=== PATIENT | female | born 1995 | race Caucasian/White ===

== ENCOUNTER 2018-07-15 10:07 | Emergency (ER) | payer OTHER ==
[~2018-07-15] VITALS: Ht 167.6 cm; Wt 70.6 kg
[2018-07-15 10:11] VITALS: Ht 167.6 cm; Wt 70.6 kg
[2018-07-15] MEDS ORDERED: KETOROLAC 30 MG INJ IV STA (11:55)
[2018-07-15] MEDS ORDERED: SOD CHLORIDE 0.9% 1,000 ML IV STA (11:55)
[2018-07-15] MEDS ORDERED: ONDANSETRON 4 MG INJ IV STA (13:28)
[2018-07-15] MEDS ORDERED: morphine 4 MG/ML VIAL IV STA (13:28)
[2018-07-15] MEDS ORDERED: NAPR-985 PO (13:46)
[2018-07-15] MEDS ORDERED: HYDR-4011 PO (13:46)
--- NOTE | 2018-07-15 14:06 | ERD ---
ER Documentation Chief Complaint Chief Complaint lower abd pain with nausea x this am HPI 23-year-old female presenting with lower abdominal pain with nausea that started this morning. She states she has no fevers and n vomiting. No change in urination or bowel movement. Took ibuprofen with no alleviation's. Denies other medical problems. NKDA. Surgical history denies. Social history denies ROS All systems reviewed and are negative except as per history of present illness. Medications Home Meds Active Scripts Naproxen* (Naprosyn*) 500 Mg Tablet, 500 MG PO BID PRN for PAIN AND/OR INFLAMMATION, #30 TAB Prov:KATIE LILLY PA-C 07/15/18 Hydrocodone/Acetaminophen (Bunn 5-325 Tablet) 1 Each Tablet, 1 TAB PO Q6H PRN for PAIN, #7 TAB Prov:KATIE LILLY PA-C 07/15/18 Allergies Allergies: Coded Allergies: lamotrigine (Verified Allergy, Mild, 07/15/18) PMhx/Soc Hx Psychiatric Problems: Yes (depression) Hx Alcohol Use: No Hx Substance Use: No Hx Tobacco Use: No Smoking Status: Never smoker FmHx Family History: No diabetes, No coronary disease, No other Physical Exam Vitals Vital Signs Date Temp Pulse Resp B/P (MAP) Pulse Ox O2 O2 Flow FiO2 Time Delivery Rate 07/15/18 99.4 98 19 141/93 98 10:11 (109) Physical Exam GENERAL: The patient is well-appearing, well-nourished, in no acute distress HEENT: Atraumatic. Conjunctivae are pink. Pupils equal, round, and reactive to light. There is no scleral icterus. Tympanic membranes clear bilaterally. Oropharynx clear. NECK: C-spine is soft and supple. There is no meningismus. There is no cervical lymphadenopathy. CHEST: Clear to auscultation bilaterally. There are no rales, wheezes or rhonchi. HEART: Regular rate and rhythm. No murmurs, clicks, rubs or gallops. ABDOMEN: Normal active bowel sounds. No distention. No organomegaly. Tender to palpation in the right lower quadrant with no rebound tenderness. Result Diagram: 07/15/18 1231 07/15/18 1231 Results 24 hrs Laboratory Tests Test 07/15/18 12:10 07/15/18 12:31 Urine Color YELLOW Urine Clarity SLIGHTLY CLOUDY Urine pH 6.0 Urine Specific [place] 1.008 Urine Ketones NEGATIVE mg/dL Urine Nitrite NEGATIVE mg/dL Urine Bilirubin NEGATIVE mg/dL Urine Urobilinogen NEGATIVE mg/dL Urine Leukocyte Esterase NEGATIVE Kel/ul Urine Microscopic RBC 2 /HPF Urine Microscopic WBC 1 /HPF Urine Squamous Epithelial Cells FEW /HPF Urine Bacteria FEW /HPF Urine Hemoglobin NEGATIVE mg/dL Urine Glucose NEGATIVE mg/dL Urine Total Protein NEGATIVE mg/dl POC Beta HCG, Qualitative NEGATIVE White Blood Count 16.8 10^3/ul Red Blood Count 3.87 10^6/ul Hemoglobin 12.2 g/dl Hematocrit 34.7 % Mean Corpuscular Volume 89.7 fl Mean Corpuscular Hemoglobin 31.5 pg Mean Corpuscular Hemoglobin Concent 35.2 g/dl Red Cell Distribution Width 11.7 % Platelet Count 253 10^3/UL Mean Platelet Volume 8.4 fl Immature Granulocytes % 0.700 % Neutrophils % 83.6 % Lymphocytes % 8.9 % Monocytes % 6.4 % Eosinophils % 0.1 % Basophils % 0.3 % Nucleated Red Blood Cells % 0.0 /100WBC Immature Granulocytes # 0.120 10^3/ul Neutrophils # 14.0 10^3/ul Lymphocytes # 1.5 10^3/ul Monocytes # 1.1 10^3/ul Eosinophils # 0.0 10^3/ul Basophils # 0.1 10^3/ul Nucleated Red Blood Cells # 0.0 10^3/ul Sodium Level 136 mmol/L Potassium Level 4.0 mmol/L Chloride Level 102 mmol/L Carbon Dioxide Level 22 mmol/L Anion Gap 12 Blood Urea Nitrogen 5 mg/dl Creatinine 0.50 mg/dl Est Glomerular Filtrat Rate mL/min > 60 mL/min Glucose Level 96 mg/dl Calcium Level 9.4 mg/dl Total Bilirubin 0.6 mg/dl Direct Bilirubin 0.00 mg/dl Indirect Bilirubin 0.6 mg/dl Aspartate Amino Transf (AST/SGOT) 21 IU/L Alanine Aminotransferase (ALT/SGPT) 22 IU/L Alkaline Phosphatase 77 IU/L Total Protein 7.2 g/dl Albumin 4.5 g/dl Globulin 2.70 g/dl Albumin/Globulin Ratio 1.66 Lipase 33 U/L Current Medications Medications Dose Sig/Kirti Start Time Status Last (Trade) Ordered Route PRN Stop Time Admin Dose Reason Admin Sodium 1,000 ml @ Q1H STAT 07/15/18 DC 07/15/18 Chloride 1,000 mls/hr IV 11:55 12:12 07/15/18 12:54 Ketorolac 30 mg ONCE STAT 07/15/18 DC 07/15/18 Tromethamine IV 11:55 12:18 (Toradol) 07/15/18 11:57 Morphine 4 mg ONCE STAT 07/15/18 DC 07/15/18 Sulfate IV 13:28 13:37 (morphine) 07/15/18 13:30 Ondansetron 2 mg ONCE STAT 07/15/18 DC 07/15/18 HCl (Zofran IV 13:28 13:37 Inj) 07/15/18 13:30 Procedures/MDM DIAGNOSTIC IMAGING REPORT Patient: PATEL SILVA : 1995 Age: 23 Sex: F MR #: [id number] DOS: 07/15/18 1155 Ordering MD: MAK LILLY PA-C Location: [facility] Room/Bed: PROCEDURE: CT Abdomen and pelvis without contrast. CLINICAL INDICATION: Abdominal pain TECHNIQUE: CT scan of the abdomen and pelvis without contrast was performed on a multidetector high-resolution CT scan. . Coronal and sagittal reformatted images were obtained from the axial source images. Standard CT scan of the abdomen pelvis without contrast protocols were performed. The total exam CTDI equals 12.21 mGy and the total exam DLP equals 689.01 mGy- cm. One or more of the following dose reduction techniques were used: - Automated exposure control. - Adjustment of the mA and/or kV according to patient size. Use of iterative reconstruction technique. Dicom images are available COMPARISON: None. FINDINGS: A definite appendix is not visualized. There is however no evidence of appendicitis. Short segment borderline fluid-filled dilated terminal ileum with the remainder of the small bowel and large bowel unremarkable. Finding may represent ileus or focal enteritis. Stomach unremarkable. Kidneys are normal in size without calcified calculi hydronephrosis or intra masses bilaterally. No evidence ureteral calcified calculi or dilatation. Distended urinary bladder otherwise unremarkable. Anteverted anteflexed uterus otherwise unremarkable. No definite adnexal masses demonstrated. Moderate free fluid in the cul-de-sac and extending into the right left adnexal regions. No localized fluid collection to suggest abscess. Negative for intra- abdominal free air. No abdominal pelvic lymphadenopathy. Liver spleen pancreas adrenal glands and gallbladder are unremarkable. No evidence of biliary ductal dilation. Lung bases unremarkable. Aorta unremarkable. Abdominal pelvic wall unremarkable. Osseous structures unremarkable. IMPRESSION: 1. Moderate free fluid in the cul-de-sac extending into the right and left adnexa. No abscess or free air. 2. Short segment borderline fluid-filled dilated terminal ileum with the remainder of the small bowel and large bowel unremarkable. Finding may represent local ileus or focal enteritis. 3. Nonvisualization the appendix however no CT evidence of appendicitis. 4. No evidence of calcified urinary calculi or obstructive uropathy. DIAGNOSTIC IMAGING REPORT Patient: PATEL SILVA : 1995 Age: 23 Sex: F MR #: [id number] DOS: 07/15/18 1155 Ordering MD: MAK LILLY PA-C Location: [facility] Room/Bed: PROCEDURE: Pelvic ultrasound color-flow Doppler of the adnexa CLINICAL INDICATION: Abdominal Pain TECHNIQUE: Multiple sagittal, oblique and transverse real time images were obtained of the lower abdomen and pelvis using a transabdominal approach. Color-flow Doppler of the adnexa was performed. COMPARISON: None. FINDINGS: There is free fluid in the cul-de-sac and extending into the right adnexa. The uterus is normal limits in size measuring 7.56 x by 3.55 x 5.0 cm. Myometrial echoes are homogeneous without focal lesions. Endometrium homogeneous without focal lesion mildly thickened with a maximal AP diameter 1.46 cm likely due to menstrual changes. Recommend clinical correlation. The right ovary is slightly large measuring 3.36 x 1.75 x 1.94 cm and the left ovary normal in size measuring 2.31 x 1.22 x 1.81 cm. Within the right ovary is a 1.7 x 1.7 cm cyst. No other ovarian masses. No adnexal masses demonstrated. Flow to both ovaries without ultrasonic evidence of ovarian torsion. IMPRESSION: 1. Normal size uterus without focal lesions. Mild thickened endometrium likely menstrual changes. Recommend confirmation. 2. Mildly enlarged right ovary containing a 1.7 x 1.7 cm cyst. No other ovarian masses. No ultrasonic evidence of ovarian torsion. 3. Free fluid in the cul-de-sac extending into the right adnexa. 4. No adnexal masses. ER course: 1 L normal saline given ED. Toradol and morphine given ED. Zofran given ED. Urine negative MDM: 23-year-old female presenting with right lower quadrant pain. Patient's ultrasound shows signs of ovarian cyst and I have low suspicion for appendicitis. I have low suspicion for ectopic or tubo-ovarian abscess. Patient is discharged with stricter precautions and told to follow-up with primary care within 1-2 days for close evaluation. Patient is told symptoms change or worsen to return to the ER immediately. All questions answered at discharge Departure Diagnosis: Primary Impression: Ovarian cyst Condition: Stable Patient Instructions: Ovarian Cyst Referrals: [facility] YOU HAVE RECEIVED A MEDICAL SCREENING EXAM AND THE RESULTS INDICATE THAT YOU DO NOT HAVE A CONDITION THAT REQUIRES URGENT TREATMENT IN THE EMERGENCY DEPARTMENT. FURTHER EVALUATION AND TREATMENT OF YOUR CONDITION CAN WAIT UNTIL YOU ARE SEEN IN YOUR DOCTORS OFFICE WITHIN THE NEXT 1-2 DAYS. IT IS YOUR RESPONSIBILITY TO MAKE AN APPOINTMENT FOR FOLOW-UP CARE. IF YOU HAVE A PRIMARY DOCTOR --you should call your primary doctor and schedule an appointment IF YOU DO NOT HAVE A PRIMARY DOCTOR YOU CAN CALL OUR PHYSICIAN REFERRAL HOTLINE AT IF YOU CAN NOT AFFORD TO SEE A PHYSICIAN YOU CAN CHOSE FROM THE FOLLOWING [facility] [address] [facility] [address] [facility] [facility] [address] [facility] [address] [facility] [address] [facility] [facility]. [address] Additional Instructions: FOLLOW UP WITH YOUR PRIMARY CARE PHYSICIAN TOMORROW.Return to this facility if you are not improving as expected. KATIE LILLY PA-C Jul 15, 2018 14:06
== END 2018-07-15 14:05 | disposition home or self-care (01) ==
LOC: FTE 10:07
DX: N83.201 Unspecified ovarian cyst, right side (principal); R11.0 Nausea
CPT/HCPCS: 74176; 76856; 80053; 81001; 81025; 83690; 85025; J1885; J2270; J2405; J7030; 81003; 96374; 96375